=== PATIENT | male | born 2005 | race Caucasian/White ===

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

== ENCOUNTER → 2023-06-09 | Outpatient (REF) | payer OTHER | LOC: M LAB REF 11:59 | PROVIDERS: ATTEND Physician Assistant | DX: B34.9 Viral infection, unspecified (principal) ==

== ENCOUNTER 2024-02-12 18:21 | Emergency (ER) | payer OTHER, SELFPAY ==
[~2024-02-12] VITALS: Ht 188 cm; Wt 93.8 kg
[2024-02-12 18:26] VITALS: BP 140/86; TEMP 97.6; O2SAT 99
== END 2024-02-12 18:40 | disposition left against medical advice (07) ==
LOC: M ED 18:21
DX: Z53.21 Procedure and treatment not carried out due to patient leaving prior to being seen by health care provider (principal)